=== PATIENT | female | born 1950 | race Caucasian/White ===

== ENCOUNTER 2019-08-02 18:59 | Emergency (ER) | payer BC, MEDICARE ==
[~2019-08-02] VITALS: Ht 172.7 cm; Wt 61.2 kg
--- NOTE | 2019-08-02 19:08 | NUR ---
pt [id number]. ambulatory. c/o left thumb laceration. PA at bedside for eval. No acute distress noted.
[2019-08-02] MEDS ORDERED: TDAP [DIPH/PERTUSSIS/TET] 0.5 ML VIAL IM ONE ×2 (19:14→19:30)
--- NOTE | 2019-08-02 19:19 | NUR ---
EMT AT BEDSIDE FOR WOUND CARE
[2019-08-02 19:44] VITALS: BP 114/76
--- NOTE | 2019-08-02 19:49 | NUR ---
Patient discharged to home in stable condition. Written and verbal after care instructions given. Patient verbalizes understanding of instruction and RX. PT ambulatory with a steady gait. Pt finger wrapped by emt. VSS.
== END 2019-08-02 19:50 | disposition home or self-care (01) ==
LOC: ER 19:01
DX: S61.112A Laceration without foreign body of left thumb with damage to nail, initial encounter (principal); Z91.040 Latex allergy status; Z88.2 Allergy status to sulfonamides; W26.0XXA Contact with knife, initial encounter; Y93.89 Activity, other specified; Y92.89 Other specified places as the place of occurrence of the external cause; Y99.8 Other external cause status
CPT/HCPCS: 90715